=== PATIENT | female | born 1955 | race Caucasian/White ===

== ENCOUNTER 2022-10-10 09:52 | Outpatient (CLI) | payer MEDICARE, SELFPAY ==
--- NOTE | ~2022-10-10 | US_ITS ---
CORRECTED REPORT EXAMINATION TIME CORRECTED. This report was recreated on 10/18/2022. Original report was K LINER OPERATOR. 10/18/2022 se EXAMINATION: US carotid duplex BI DATE: 10/10/2022 10:06 INDICATION: Occlusion and stenosis of unspecified carotid artery. TECHNIQUE: Grayscale, color Doppler, and pulsed Doppler images of the cervical carotid arteries were obtained. The degree of vessel stenosis is placed in one of the following categories: normal, <50%, 50-69%, >=70% but less than near- occlusion, near-occlusion, or total occlusion. Note that percent stenosis relative to normal distal artery lumen diameter is indirectly measured from velocity measurements as described by Duncan, et al. Radiology 2003; 229:340-346. COMPARISON: None. FINDINGS: RIGHT: The right common carotid artery (CCA) peak systolic velocity (PSV) is 117 cm/s. The right internal carotid artery (ICA) PSV is 99 cm/s. The right ICA end- diastolic velocity (EDV) is 41 cm/s. The right ICA/CCA PSV ratio is 0.8. Grayscale and color Doppler images yield an estimate of <50% diameter reduction from plaque in the ICA. There is antegrade flow in the right vertebral artery. LEFT: The left CCA PSV is 113 cm/s. The left ICA PSV is 95 cm/s. The left ICA EDV is 39 cm/s. The left ICA/CCA PSV ratio is 0.8. Grayscale and color Doppler images yield an estimate of <50% diameter reduction from plaque in the ICA. There is antegrade flow in the left vertebral artery. IMPRESSION: 1. <50% stenosis in the right internal carotid artery. 2. <50% stenosis in the left internal carotid artery. Reviewed, dictated and finalized at location A. K LINER OPERATOR MTDD
== END 2022-10-10 09:53 | disposition home or self-care (01) ==
PROVIDERS: PCP Nurse Practitioner Family; Visit Provider Nurse Practitioner Family
DX: I65.23 Occlusion and stenosis of bilateral carotid arteries (principal)
CPT/HCPCS: 93880

== ENCOUNTER 2023-03-19 08:32 | Outpatient (CLI) | payer MEDICARE, SELFPAY ==
--- NOTE | ~2023-03-19 | MM_ITS ---
EXAMINATION: MM screening macarena BI w sondra HISTORY: Screening mammogram TECHNIQUE: Craniocaudal and mediolateral oblique 3-D tomosynthesis images were obtained and synthetic 2-D images were generated. CAD analysis was submitted and interpreted. COMPARISON: No prior mammogram is available for comparison at this institution. BREAST PARENCHYMAL COMPOSITION: The breasts are heterogeneously dense, which may obscure small masses . FINDINGS: No suspicious mass, calcification, or architectural distortion are identified in either susy ast to suggest malignancy. IMPRESSION: 1. No mammographic evidence of malignancy. 2. Recommend routine screening mammography in one year. BI-RADS Category 1: Negative Reviewed, dictated and finalized at location A.
== END 2023-03-19 08:33 | disposition home or self-care (01) ==
LOC: ANHIMG 08:35
PROVIDERS: PCP Nurse Practitioner Family; Visit Provider Nurse Practitioner Family
DX: Z12.31 Encounter for screening mammogram for malignant neoplasm of breast (principal)
CPT/HCPCS: 77063; 77067

== ENCOUNTER → 2023-08-29 13:09 | Outpatient (CLI) | payer MEDICARE, SELFPAY ==
--- NOTE | ~2023-08-29 | CT_ITS ---
CT of the Abdomen: Indication: Lymphadenopathy Technique: 2.5 mm axial scans were obtained through the abdomen following intravenous administration of 100 cc of Omnipaque 350. Dose reduction technique was used on this scan by utilizing automated ex posure control and iterative reconstruction technique. The dose-length product (DLP) was 273.95 mGy-c m. Findings: Scans through the lung bases are unremarkable. The liver, spleen, pancreas, adrenals and kidneys are within normal limits. Small calcified gallstone present. No evidence of aortic aneurysm. No lymphadenopathy. Visualized bowels are unremarkable. No ascites Impression: No lymphadenopathy seen. Small gallstone. Reviewed, dictated and finalized at location M. CTOR OF BUSINESS SERVICES Impression: No lymphadenopathy seen. Small gallstone.
[2023-08-29 13:45] LABS: Estimated Glomerular Filt Rate > 60
== END ==
PROVIDERS: PCP Nurse Practitioner Family; Visit Provider Nurse Practitioner Family
DX: R59.0 Localized enlarged lymph nodes (principal); K80.20 Calculus of gallbladder without cholecystitis without obstruction
CPT/HCPCS: 74160; Q9967

== ENCOUNTER 2023-09-18 12:15 | Outpatient (CLI) | payer MEDICARE, SELFPAY ==
--- NOTE | 2023-09-18 12:26 | ECG_ITS ---
Measurements Intervals Douglas Rate: 61 P: 41 HI: 156 QRS: 42 QRSD: 90 T: 56 QT: 402 QTc: 407 Interpretive Statements SINUS RHYTHM ATRIAL PREMATURE COMPLEXES BORDERLINE ECG NO PREVIOUS ECG AVAILABLE FOR COMPARISON Electronically Signed On 09-18-2023 13:00:14 RADAR TESTER by Sarkis Dia D.O.
== END 2023-09-18 12:16 | disposition home or self-care (01) ==
PROVIDERS: PCP Nurse Practitioner Family; Visit Provider Nurse Practitioner Family
DX: R68.89 Other general symptoms and signs (principal); I10 Essential (primary) hypertension
CPT/HCPCS: 93005

== ENCOUNTER 2023-09-21 09:23 | Outpatient (CLI) | payer MEDICARE, SELFPAY ==
--- NOTE | 2023-09-21 09:34 | EST_ITS ---
Patient Info Name: Sailaja Ordaz Age: 68 years : 1955 Gender: Female Ht: 63 in Wt: 138 lbs BSA: 1.68 m2 Exam Date: 09/21/2023 9:46 AM Exam Location: Echo Lab Patient Status: Outpatient Admit Date: 09/21/2023 Staff Ordering Physician: Gerda Jasmine NP Attending Provider: Bib Pandey MD Exercise Technologist: Palak Wilson RDCS Exercise Physician: Sarkis Dia DO Exam Type: CA stress test treadmill Study Info Indications E78.5 - Hyperlipidemia, unspecified I10 - Essential (primary) hypertension A treadmill exercise stress test was performed. Summary 1. 1. Negative Bogdan exercise stress test for ischemic ST changes by ECG criteria. 2. 2. Good functional capacity, achieving 7 METs of workload. 3. 3. Baseline hypertension. 4. 4. Appropriate HR response to exercise. 5. 5. Appropriate HR recovery at 1 minute post exercise. 6. 6. No imaging with stress testing. 7. 7. Patient informed of the above results. Protocol: Bogdan Stress ECG Details Stage: REST Duration (min): 0 min : 53 sec Speed (mph): 0.0 Grade (%): 0 HR (bpm): 64 SBP (mmHg): 144 DBP (mmHg): 84 METS: --- Stage: REST Duration (min): 4 min : 11 sec Speed (mph): 0.0 Grade (%): 0 HR (bpm): 87 SBP (mmHg): 144 DBP (mmHg): 84 METS: --- Stage: STAGE 1 Duration (min): 1 min : 0 sec Speed (mph): 1.7 Grade (%): 10 HR (bpm): 97 SBP (mmHg): 144 DBP (mmHg): 84 METS: --- Stage: STAGE 1 Duration (min): 2 min : 0 sec Speed (mph): 1.7 Grade (%): 10 HR (bpm): 101 SBP (mmHg): 144 DBP (mmHg): 84 METS: --- Stage: STAGE 1 Duration (min): 3 min : 0 sec Speed (mph): 1.7 Grade (%): 10 HR (bpm): 103 SBP (mmHg): 155 DBP (mmHg): 75 METS: --- Stage: STAGE 2 Duration (min): 1 min : 0 sec Speed (mph): 2.5 Grade (%): 12 HR (bpm): 118 SBP (mmHg): 155 DBP (mmHg): 75 METS: --- Stage: STAGE 2 Duration (min): 2 min : 0 sec Speed (mph): 2.5 Grade (%): 12 HR (bpm): 121 SBP (mmHg): 157 DBP (mmHg): 80 METS: --- Stage: STAGE 2 Duration (min): 3 min : 0 sec Speed (mph): 2.5 Grade (%): 12 HR (bpm): 124 SBP (mmHg): 157 DBP (mmHg): 80 METS: --- Stage: STAGE 3 Duration (min): 0 min : 13 sec Speed (mph): 3.4 Grade (%): 14 HR (bpm): 131 SBP (mmHg): 157 DBP (mmHg): 80 METS: --- Stage: RECOVERY Duration (min): 0 min : 46 sec Speed (mph): 0.0 Grade (%): 0 HR (bpm): 117 SBP (mmHg): 171 DBP (mmHg): 78 METS: --- Stage: RECOVERY Duration (min): 1 min : 46 sec Speed (mph): 0.0 Grade (%): 0 HR (bpm): 92 SBP (mmHg): 171 DBP (mmHg): 78 METS: --- Stage: RECOVERY Duration (min): 2 min : 46 sec Speed (mph): 0.0 Grade (%): 0 HR (bpm): 82 SBP (mmHg): 150 DBP (mmHg): 84 METS: --- Stage: RECOVERY Duration (min): 3 min : 46 sec Speed (mph): 0.0 Grade (%): 0 HR (bpm): 81 SBP (mmHg): 150 DBP (mmHg):
== END 2023-09-21 09:24 | disposition home or self-care (01) ==
LOC: ANHCARD 09:24
PROVIDERS: PCP Nurse Practitioner Family; Visit Provider Family Medicine
DX: E78.5 Hyperlipidemia, unspecified (principal); I10 Essential (primary) hypertension; R68.89 Other general symptoms and signs
CPT/HCPCS: 93017

== ENCOUNTER 2024-02-08 13:38 | Outpatient (CLI) | payer MEDICARE, SELFPAY ==
--- NOTE | 2024-02-08 13:50 | ECHO_ITS ---
Patient Info Name: Sailaja Ordaz Age: 68 years : 1955 Gender: Female Ht: 63 in Wt: 137 lbs BSA: 1.67 m2 HR: 59 bpm BP: 124 / 78 mmHg Technical Quality: Good Exam Date: 02/08/2024 2:04 PM Exam Location: Echo Lab Patient Status: Outpatient Admit Date: 02/08/2024 Staff Ordering Physician: Gerda Jasmine NP Stitch Burnisher: Austen Calderón RDCS Attending Provider: Gerda Jasmine NP Exam Type: CA echo doppler color flow Study Info Indications - history of circulatory diseases Complete two-dimensional, color flow and Doppler transthoracic echocardiogram is performed. Summary 1. Complete two-dimensional, color flow and Doppler transthoracic echocardiogram is performed. 2. Left ventricular chamber dimension is normal. 3. Left ventricular systolic function is normal, estimated at 60-65%. 4. The left ventricular diastolic function is abnormal. 5. E/e' 15 is elevated. 6. There is trace mitral valve regurgitation. 7. There is trace tricuspid valve regurgitation. 8. No pulmonary hypertension, estimated pulmonary arterial systolic pressure is 36 mmHg. Left Ventricle E/e' 15 is elevated. Left ventricular chamber dimension is normal. Left ventricular systolic function is normal, estimated at 60-65%. The left ventricular diastolic function is abnormal. Right Ventricle Right ventricular systolic function is normal and with normal TAPSE 2.1 cm. Right ventricular chamber dimension is normal. Left Atria Left atrial chamber dimension is normal. Right Atria Right atrial chamber dimension is normal. Aortic Valve The aortic valve is trileaflet. There is no aortic valve stenosis. There is no aortic valve regurgitation. Pulmonic Valve There is no pulmonic regurgitation. Mitral Valve There is no mitral valve stenosis. There is trace mitral valve regurgitation. Tricuspid Valve There is trace tricuspid valve regurgitation. No pulmonary hypertension, estimated pulmonary arterial systolic pressure is 36 mmHg. Pericardium/Pleural There is no pericardial effusion. Inferior Vena Cava Normal inferior vena cava with >50% collapse upon inspiration consistent with normal right atrial pressure, 5 mmHg. Aorta The aortic root size at the sinus of Valsalva is normal. Left Ventricular Outflow Tract Name Value Normal LVOT 2D LVOT Diameter 1.8 cm LVOT Doppler LVOT Peak Gradient 5 mmHg LVOT Mean Gradient 2 mmHg LVOT VTI 24 cm LVOT VTI/AV VTI Ratio 0.6 LVOT Stroke Volume 61 ml LVOT CO 3.4 l/min LVOT CI 2.0 l/min/m2 Pulmonic Valve Name Value Normal PV Doppler PV Peak Gradient 4 mmHg Mitral Valve Name Value Normal --------
== END 2024-02-08 13:39 | disposition home or self-care (01) ==
LOC: ANHCARD 13:39
PROVIDERS: PCP Nurse Practitioner Family; Visit Provider Nurse Practitioner Family
DX: I51.89 Other ill-defined heart diseases (principal); Z86.79 Personal history of other diseases of the circulatory system
CPT/HCPCS: 93306

== ENCOUNTER → 2024-03-28 11:11 | Outpatient (CLI) | payer MEDICARE, SELFPAY ==
--- NOTE | ~2024-03-28 | XR_ITS ---
AP view of the pelvis and AP and lateral views of the right hip Clinical history: Pain Findings: No acute fracture or dislocation is seen. Osseous alignment is anatomic. Bilateral hip and SI joint spaces are preserved. Soft tissues are unremarkable. Impression: No significant abnormality is seen. Reviewed, dictated and finalized at location . Impression: No significant abnormality is seen.
== END ==
PROVIDERS: PCP Nurse Practitioner Family; Visit Provider Nurse Practitioner Family
DX: M25.551 Pain in right hip (principal)
CPT/HCPCS: 73502

== ENCOUNTER 2024-03-31 13:02 | Outpatient (CLI) | payer MEDICARE, SELFPAY ==
--- NOTE | ~2024-03-31 | US_ITS ---
EXAMINATION: US carotid duplex BI DATE: 03/31/2024 14:26 INDICATION: Carotid artery disease TECHNIQUE: Grayscale, color Doppler, and pulsed Doppler images of the cervical carotid arteries were obtained. The degree of vessel stenosis is placed in one of the following categories: normal, <50%, 5 0-69%, >=70% but less than near-occlusion, near-occlusion, or total occlusion. Note that percent sten osis relative to normal distal artery lumen diameter is indirectly measured from velocity measurement s as described by Duncan, et al. Radiology 2003; 229:340-346. COMPARISON: None. FINDINGS: RIGHT: The right common carotid artery (CCA) peak systolic velocity (PSV) is 110 cm/s. The right internal ca rotid artery (ICA) PSV is 87 cm/s. The right ICA end-diastolic velocity (EDV) is 32 cm/s. The right I CA/CCA PSV ratio is 0.8. Grayscale and color Doppler images yield an estimate of <50% diameter reduct ion from plaque in the ICA. The external carotid artery (ECA) PSV is 61 cm/s. There is antegrade flow in the right vertebral artery. LEFT: The left CCA PSV is 94 cm/s. The left ICA PSV is 102 cm/s. The left ICA EDV is 33 cm/s. The left ICA/ CCA PSV ratio is 1.1. Grayscale and color Doppler images yield an estimate of <50% diameter reduction from plaque in the ICA. The ECA PSV is 55 cm/s. There is antegrade flow in the left vertebral artery . IMPRESSION: 1. <50% stenosis in the right internal carotid artery. 2. <50% stenosis in the left internal carotid artery. Reviewed, dictated and finalized at location A.
== END 2024-03-31 13:03 | disposition home or self-care (01) ==
LOC: ANHIMG 13:03
PROVIDERS: PCP Nurse Practitioner Family; Visit Provider Internal Medicine
DX: I25.10 Atherosclerotic heart disease of native coronary artery without angina pectoris (principal); I65.23 Occlusion and stenosis of bilateral carotid arteries
CPT/HCPCS: 93880

== ENCOUNTER 2024-04-01 09:11 | Outpatient (CLI) | payer MEDICARE, SELFPAY ==
--- NOTE | ~2024-04-01 | US_ITS ---
Right chest wall ULTRASOUND Ordering provider: Gerda Jasmine NP History: . R22.2 - Localized swelling, mass and lump, trunk . Comparison: None. FINDINGS/impression: No masses seen in the right upper chest. Reviewed, dictated and finalized at location A.
== END 2024-04-01 09:12 ==
LOC: GOSHIMG 09:12
PROVIDERS: PCP Nurse Practitioner Family; Visit Provider Nurse Practitioner Family
DX: R22.2 Localized swelling, mass and lump, trunk (principal)
CPT/HCPCS: 76604

== ENCOUNTER 2024-05-07 08:44 | Outpatient (CLI) | payer MEDICARE, SELFPAY ==
--- NOTE | ~2024-05-07 | MM_ITS ---
EXAMINATION: MM screening macarena BI w sondra HISTORY: Screening TECHNIQUE: Craniocaudal and mediolateral oblique 3-D tomosynthesis images were obtained and synthetic 2-D images were generated. CAD analysis was submitted and interpreted. COMPARISON: 03/19/2023 BREAST PARENCHYMAL COMPOSITION: The breasts are heterogeneously dense, which may obscure small masses . FINDINGS: There is no evidence of suspicious mass, calcification, or architectural distortion to sugg est malignancy in either breast. There has been no suspicious interval change. IMPRESSION: 1. No mammographic evidence of malignancy. 2. Recommend routine screening mammography in one year. BI-RADS Category 1: Negative Reviewed, dictated and finalized at location B.
== END 2024-05-07 08:45 | disposition home or self-care (01) ==
LOC: ANHIMG 08:45
PROVIDERS: PCP Nurse Practitioner Family; Visit Provider Nurse Practitioner Family
DX: Z12.31 Encounter for screening mammogram for malignant neoplasm of breast (principal)
CPT/HCPCS: 77063; 77067

== ENCOUNTER 2024-06-30 11:43 | Outpatient (CLI) | payer MEDICARE, SELFPAY ==
--- NOTE | ~2024-06-30 | DEXA_ITS ---
Bone Density Report Name: CHRISTINA KEMP Age: 68 Sex: Female Ethnicity: White Date of : 1955 Indication: postmenopausal; screening for osteoporosis; height loss; Referring Provider: AMMY MARCANO Study: Bone densitometry was performed. Exam Date: June 30, 2024 Accession number: [id number] Bone Density: Region BMD T-score Z-score Classification AP Spine(L1-L4) 1.026 -0.2 2.0 Normal Femoral Neck (Left) 0.539 -2.8 -0.9 Osteoporosis Total Hip (Left) 0.708 -1.9 -0.4 Osteopenia Femoral Neck (Right) 0.633 -1.9 -0.1 Osteopenia Total Hip (Right) 0.834 -0.9 0.7 Normal Total Hip Mean 0.771 -1.4 0.2 Osteopenia World Health Organization criteria for BMD impression classify patients as: Normal (T-score at or above -1.0), Osteopenia (T-score between -1.0 and -2.5), or Osteoporosis (T-score at or below -2.5). 10-year Fracture Risk: FRAX not reported because: Some T-score for Spine Total or Hip Total or Femoral Neck at or below -2.5 Clinical Information Provided by Patient: Has used the following medications: Vitamin D, Calcium Patient maximum height was 63.0 No regular weight bearing exercise Drinks caffeinated beverages Onset of menses at age 11 Number of children 1 Impression: The patient has osteoporosis, based on the Left Femoral Neck T-score. Discussion: INCREASED RISK OF FRACTURE. BONE DENSITY IS UNDESIRABLY LOW AT ONE OR MORE SKELETAL SITES, CONSISTENT WITH POSTMENOPAUSAL OSTEOPOROSIS. This patient's lowest T-score meets the World Health Organization's (WHO) criteria for osteoporosis at one or more sites (T-score -2.5 or below). In untreated patients, the risk of osteoporotic fracture increases approximately two-fold for each 1.0 SD decrease in T-score. Low bone density is not the only risk factor for fracture; also consider factors such as patient's age, frailty or poor health, risk of falling, risk of injury, previous osteoporotic fracture, family history of osteoporosis, cigarette smoking, low body weight, etc. Not everyone with low bone mineral density has osteoporosis; osteomalacia and other metabolic bone disorders should also be considered. Patients who have osteoporosis should be evaluated for specific diseases and conditions (secondary causes) that may cause or contribute to bone loss. The [place] Association of Clinical Endocrinologists (AACE) and National Osteoporosis Foundation (NOF) recommend pharmacologic intervention for all postmenopausal women whose T-score is in this range. The patient should follow a healthful lifestyle (good nutrition with adequate calcium and vitamin D, and appropriate weight-bearing exercise). Follow-Up: Consider a repeat BMD and Vertebral Fracture Assessment (VFA) exam in 2 years or sooner if medically necessary, to reassess this patient's status
== END 2024-06-30 11:44 | disposition home or self-care (01) ==
LOC: ANHIMG 11:45
PROVIDERS: PCP Nurse Practitioner Family; Visit Provider Nurse Practitioner Family
DX: M81.0 Age-related osteoporosis without current pathological fracture (principal); M85.89 Other specified disorders of bone density and structure, multiple sites; Z78.0 Asymptomatic menopausal state
CPT/HCPCS: 77080

== ENCOUNTER → 2024-07-14 11:44 | Outpatient (CLI) | payer MEDICARE, SELFPAY ==
--- NOTE | ~2024-07-14 | XR_ITS ---
EXAMINATION: XR lumbar spine min 4V DATE: 07/14/2024 12:14 INDICATION: Low back pain rating down the right leg. TECHNIQUE: 5 views of lumbar spine were obtained. COMPARISON: Abdomen CT 08/29/2023 FINDINGS: There is 15 degrees dextroscoliosis of lumbar spine. Vertebral body heights are normal. The re is moderately decreased disc height at L1-L2 and severely decreased disc height at L2-L3, L4-L5, a nd L5-S1. There is multilevel facet joint osteoarthritis, severe in lower lumbar spine. IMPRESSION: 1. Severe lumbar spondylosis. 2. Lumbar dextroscoliosis. Reviewed, dictated and finalized at location B.
== END ==
LOC: EXPTRAD 11:52
PROVIDERS: PCP Nurse Practitioner Family; Visit Provider Nurse Practitioner Family
DX: M25.551 Pain in right hip (principal); M47.896 Other spondylosis, lumbar region
CPT/HCPCS: 72110

== ENCOUNTER 2025-06-02 09:03 | Outpatient (CLI) | payer MEDICARE, SELFPAY ==
--- NOTE | ~2025-06-02 | MM_ITS ---
EXAMINATION: MM screening [facility] BI w sondra HISTORY: Screening TECHNIQUE: Craniocaudal and mediolateral oblique 3-D tomosynthesis images were obtained and synthetic 2-D images were generated. CAD analysis was submitted and interpreted. COMPARISON: 03/19/2023 BREAST PARENCHYMAL COMPOSITION: The breasts are heterogeneously dense, which may obscure small masses. FINDINGS: There is no evidence of suspicious mass, calcification, or architectural distortion to suggest malignancy. Focal asymmetry in the upper- outer quadrant of the left breast, posterior depth. In addition, there is an asymmetry in the medial left breast, posterior depth, seen in the left CC proje ction. IMPRESSION: 1. Focal asymmetry in the upper-outer quadrant of the left breast, posterior depth. In addition, there is an asymmetry in the medial left breast, posterior depth, seen in the left CC projection. The study is incomplete. A diagnostic left breast mammogram and a diagnostic left breast ultrasound is recommended. 2. No mammographic evidence for malignancy in the right breast. BI-RADS 0: Incomplete-Need additional imaging evaluation. Reviewed, dictated and finalized at location Q. IMPRESSION: 1. Focal asymmetry in the upper-outer quadrant of the left breast, posterior de pth. In addition, there is an asymmetry in the medial left breast, posterior de pth, seen in the left CC projection. The study is incomplete. A diagnostic left breast mammogram and a diagnostic left breast ultrasound is recommended. 2. No mammographic evidence for malignancy in the right breast. BI-RADS 0: Incomplete-Need additional imaging evaluation.
--- OUTSIDE RECORDS SUMMARY | 2025-06-02 10:12 | XMS_ITS | Clinical Summary ---
Author Organization [facility] Address [address] [place] [place] [address] Care Team Providers Care Assistant Manager Bilingual Name Role Phone Roberto Piña DO Primary Care Provider Source Comments [facility],non-owned Affiliates and Associated Physician Practices is amultiple site organization consisting of ambulatory clinics and hospital sitesin [place], [place], [place] and [place]. This disclosure is being madepursuant to the Care Everywhere program and may not contain all information available regarding this patient. Last updated 18.[facility] Allergies Active Allergy Reactions Criticality Noted Date Comments Morphine Other High 07/15/2012 Hypotension and bradycardia Medications * Be aware that medications may not be up to date on this document. Alwaysverify current medications with the patient. aspirin EC (ECOTRIN) 81 MG tablet Take 81 mg by mouth once daily. Active calcium-vitamin D (OS-MUNIR 500 + D) 500-200 MG-UNIT tablet Take 1 Tab by mouth once daily. Active cetirizine (ZYRTEC) 10 MG tablet Take 10 mg by mouth once daily. Active simvastatin (ZOCOR) 20 MG tablet Take 20 mg by mouth at bedtime. Active valsartan (DIOVAN) 160 MG tablet Take 80 mg by mouth once daily. Active zolpidem (AMBIEN) 10 MG tablet Take 5 mg by mouth nightly as needed for Insomnia. Active CYANOCOBALAMIN IJ 1,000 mcg by Injection route every 30 days. approx 15 each month Active hydrocodone-kevin taminophen (NORCO) 5-325 MG tablet Take 1-2 Tabs by mouth every 6 hours as needed for Pain. 30 Tab 0 4 Active Active Problems Problem Noted Date Diagnosed Date Back pain 07/15/2012 Carotid artery stenosis 06/29/2011 HTN (hypertension) Family History Medical History Relation Name Comments Diabetes Father Hypertension Father CAD (Coronary Artery Disease) Mother Diabetes Mother Relation Name Status Comments Father Mother Social History Tobacco Use Types Packs/Day Years Used Date Smoking Tobacco: Never Alcohol Use Standard Drinks/Week Comments Yes 0 (1 standard drink = 0.6 oz pur e alcohol) rare Comments No Sex and Gender Information Value Date Recorded Sex Assigned at Not on file Legal Sex Female 12:35 PM PROCESS DEVELOPMENT ASSOCIATE Gender Identity Not on file Sexual Orientation Not on file Last Filed Vital Signs Vital Sign Reading Time Taken Comments Blood Pressure 136/84 08/26/2014 2:22 PM PROCESS DEVELOPMENT ASSOCIATE Pulse 76 08/26/2014 2:22 PM PROCESS DEVELOPMENT ASSOCIATE Temperature 36.9 C (98.5 F) 08/26/2014 2:22 PM PROCESS DEVELOPMENT ASSOCIATE Respiratory Rate 16 08/26/2014 2:22 PM PROCESS DEVELOPMENT ASSOCIATE Oxygen Saturation 100% 08/26/2014 2:22 PM PROCESS DEVELOPMENT ASSOCIATE Inhaled Oxygen Concentration - - Weight 59 kg (130 lb) 08/25/2014 3:31 PM PROCESS DEVELOPMENT ASSOCIATE Height 160 cm (5' 3) 08/25/2014 3:31 PM PROCESS DEVELOPMENT ASSOCIATE Body Mass Index 23.03 08/25/2014 3:31 PM PROCESS DEVELOPMENT ASSOCIATE Plan of Treatment Health Maintenance Due Date Last Done Comments COLOGUARD (AGES 45-75) - COLON CA SCREENING 1955 COLON MONITORING 1955 COLONOSCOPY - COLON CA SCREENING 1955 CT COLONOGRAPHY - COLON CA SCREENING 1955 Colorectal Cancer Screening 1955 FIT - COLON CA SCREENING 1955 FLEX SIG - COLON CA SCREENING 1955 MAMMOGRAM 1955 HEPATITIS C SCREENING 07/28/1971 DTAP/TDAP/TD VACCINES (1 - Tdap) 1972 PNEUMOCOCCAL VACCINE 50+ (1 of 1 - PCV) 2003 ZOSTER VACCINE (1 of 2) 2003 DEPRESSION SCREENING 09/17/2024 COVID-19 VACCINE (1 - season) 2025 INFLUENZA VACCINE (#1) 2025 Respiratory Syncytial Virus (RSV) Vaccine Pt: or over 60 yrs (1 - 1-dose 75+ series) 2028 BONE DENSITY TESTING Completed 10/24/2012, 10/30/2011, 11/01/2009, Additional history exists HEPATITIS B VACCINE Aged Out No longe r eligible based on patient's age to complete this topic HIB VACCINE Aged Out No longer eligi ble based on patient's age to complete this topic HPV VACCINE Aged Out No longer eligi ble based on patient's age to complete this topic MENINGOCOCCAL (Group B) VACCINE SHARED DECISION-MAKING Aged Out No longer eligible based on patient's age to complete this topic MENINGOCOCCAL GROUPS A/C/Y/W VACCINE Aged Out No longer eligible based on patient's age to complete this topic Medical Devices Implanted Type Area Data Center Manager Device Identifier Shelf Expiration Date Model / Serial / Lot Patch Mesh Hemshld Platnm Finesse 8 X 75 - [id number] Implanted:Qty: 1 on 08/25/2014 by Faisal Pelletier II, MD at [facility] Right: Carotid Maquet 11/15/2018 [id number] [id number](1) / [id number] / [id number] Procedures Procedure Name Priority Date/Time Associated Diagnosis Comments DEXA BONE DENSITY 2 SITES Routine 10/24/2012 4:03 PM PROCESS DEVELOPMENT ASSOCIATE Osteoporosis, unspecified from Last 3 Months or Most Recently Relevant to Health Maintenance Results * DEXA BONE DENSITY 2 SITES (10/24/2012 4:03 PM PROCESS DEVELOPMENT ASSOCIATE) Anatomical Region Laterality Modality Mammography 10/24/2012 4:03 PM PROCESS DEVELOPMENT ASSOCIATE Impressions 10/24/2012 4:03 PM PROCESS DEVELOPMENT ASSOCIATE Normal bone mineral density Of the lumbar spine, unchanged from the prior study Left femoral neck: The bone mineral density of the left femoral neck is 0.5 , which corresponds to a young adult T-SCORE of -2.4 , and an age-matched Z-SCORE of -1.2 . IMPRESSION: Osteopenia of the left femoral neck; which represents a 2% decrease from the prior study and a 4.5% decrease from the baseline exam of 11-01-09. Narrative 10/24/2012 4:03 PM PROCESS DEVELOPMENT ASSOCIATE Exam: Hip and spine bone mineral density. History: Postmenopausal status. Family history of osteoporosis. The patient takes calcium supplements. FINDINGS: Comparison exam from 10-30-11 Lumbar spine: The bone mineral density of the lumbar spine is 1.0 , which corresponds to a young adult T-SCORE of 0.4 , and an age-matched Z-SCORE of 1.7 . Procedure Note Miriam Lanza MD - 10/24/2012 Exam: Hip and spine bone mineral density. History: Postmenopausal status. Family history of osteoporosis. The patient takes calcium supplements. FINDINGS: Comparison exam from 10-30-11 Lumbar spine: The bone mineral density of the lumbar spine is 1.0 , which corresponds to a young adult T-SCORE of 0.4 , and an age-matched Z-SCORE of 1.7 . IMPRESSION Normal bone mineral density Of the lumbar spine, unchanged from the prior study Left femoral neck: The bone mineral density of the left femoral neck is 0.5 , which corresponds to a young adult T-SCORE of -2.4 , and an age-matched Z-SCORE of -1.2 . IMPRESSION: Osteopenia of the left femoral neck; which represents a 2% decrease from the prior study and a 4.5% decrease from the baseline exam of 11-01-09. Roberto Piña DO DEXA ORDERABLES Final Result from Last 3 Months or Most Recently Relevant to Health Maintenance Insurance [facility] Address: [facility] [id number] [place] [address] Advance Directives * Full Code (Latest Code Status on File) Date Activated Date Inactivated Comments 08/25/2014 12:23 PM 08/26/2014 4:26 PM * FULL RESUSCITATION Date Activated Date Inactivated Comments 07/15/2012 1:42 PM 07/16/2012 2:14 PM Care Teams Assistant Manager Bilingual Relationship Specialty Start Date End Date Roberto Piña DO PCP - General Family Medicine 06/29/11
== END 2025-06-02 09:04 | disposition home or self-care (01) ==
LOC: ANHFOHIMG 09:05
PROVIDERS: PCP Nurse Practitioner Family; Visit Provider Nurse Practitioner Family
DX: Z12.31 Encounter for screening mammogram for malignant neoplasm of breast (principal); R92.8 Other abnormal and inconclusive findings on diagnostic imaging of breast
CPT/HCPCS: 77063; 77067

== ENCOUNTER 2025-06-23 13:14 | Outpatient (CLI) | payer MEDICARE, SELFPAY ==
--- NOTE | ~2025-06-23 | MM_ITS ---
EXAMINATION: MM diagnostic [facility] LT w sondra INDICATION: 69-year old female; BI-RADS 0, callback to evaluate Left breast asymmetries. COMPARISON: 06/02/2025 through 03/19/2023 TECHNIQUE: Digital breast tomosynthesis True lateral view and spot compression pain CC and MLO views of Left breast were obtained with computer-aided detection to assist in interpretation of the study. FINDINGS: The breasts are heterogeneously dense, which may obscure small masses. The focal asymmetry seen in the upper outer quadrant and in the medial Left breast on the screening mammogram effaces on additional views, compatible with normal overlapping tissue.. IMPRESSION: Left breast asymmetries represents superimposition of fibroglandular tissue. No further investigation necessary. RECOMMENDATION: Annual screening mammography in 12 months BI-RADS 2, BENIGN Reviewed, dictated and finalized at location B.
--- OUTSIDE RECORDS SUMMARY | 2025-06-23 14:08 | XMS_ITS | Clinical Summary ---
Author Organization [facility] [employer] Address [address] [place] [address] Care Team Providers Care Store Gift Wrap Associate Name Role Phone Roberto Piña DO Primary Care Provider [phone] Source Comments [facility],non-owned Affiliates and Associated Physician Practices is amultiple site organization consisting of ambulatory clinics and hospital sitesin [place], [place], [place] and [place]. This disclosure is being madepursuant to the Care Everywhere program and may not contain all information available regarding this patient. 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 Gender Identity Not on file Sexual Orientation Not on file Last Filed Vital Signs Vital Sign Reading Time Taken Comments Blood Pressure 136/84 08/26/2014 2:22 PM HAZMAT TANKER DRIVER Pulse 76 08/26/2014 2:22 PM HAZMAT TANKER DRIVER Temperature 36.9 C (98.5 F) 08/26/2014 2:22 PM HAZMAT TANKER DRIVER Respiratory Rate 16 08/26/2014 2:22 PM HAZMAT TANKER DRIVER Oxygen Saturation 100% 08/26/2014 2:22 PM HAZMAT TANKER DRIVER Inhaled Oxygen Concentration - - Weight 59 kg (130 lb) 08/25/2014 3:31 PM HAZMAT TANKER DRIVER Height 160 cm (5' 3) 08/25/2014 3:31 PM HAZMAT TANKER DRIVER Body Mass Index 23.03 08/25/2014 3:31 PM HAZMAT TANKER DRIVER Plan of Treatment Health Maintenance Due Date [...] this topic Medical Devices Implanted Type Area Orchestra Leader Device Identifier Shelf Expiration Date Model / Serial / Lot Patch Mesh Hemshld Platnm Finesse 8 X 75 - [id number] Implanted:Qty: 1 on 08/25/2014 by Faisal Pelletier II, MD at [facility] Right: Carotid Maquet 11/15/2018 [id number] [id number](1) / [id number] / [id number] Procedures Procedure Name Priority Date/Time Associated Diagnosis Comments DEXA BONE DENSITY 2 SITES Routine 10/24/2012 4:03 PM HAZMAT TANKER DRIVER Osteoporosis, unspecified from Last 3 Months or Most Recently Relevant to Health Maintenance Results * DEXA BONE DENSITY 2 SITES (10/24/2012 4:03 PM HAZMAT TANKER DRIVER) Anatomical Region Laterality Modality Mammography 10/24/2012 4:03 PM HAZMAT TANKER DRIVER Impressions 10/24/2012 4:03 PM HAZMAT TANKER DRIVER Normal bone mineral density Of the lumbar [...] exam of 11-01-09. Narrative 10/24/2012 4:03 PM HAZMAT TANKER DRIVER Exam: Hip and spine bone mineral density. [...] Most Recently Relevant to Health Maintenance Insurance [facility] Advance Directives * Full Code (Latest Code Status on File) Date Activated Date Inactivated Comments 08/25/2014 12:23 PM 08/26/2014 4:26 PM * FULL RESUSCITATION Date Activated Date Inactivated Comments 07/15/2012 1:42 PM 07/16/2012 2:14 PM Care Teams Store Gift Wrap Associate Relationship Specialty Start Date End Date Roberto Piña DO PCP - General Family Medicine 06/29/11
== END 2025-06-23 13:15 | disposition home or self-care (01) ==
LOC: ANHFOHIMG 13:16
PROVIDERS: PCP Nurse Practitioner Family; Visit Provider Nurse Practitioner Family
DX: R92.8 Other abnormal and inconclusive findings on diagnostic imaging of breast (principal)
CPT/HCPCS: 77061; 77065; G0279